=== PATIENT | male | born 1970 | race Caucasian/White ===

== ENCOUNTER 2016-04-28 04:39 | Emergency (ER) | payer SELFPAY ==
[2016-04-28 04:52] VITALS: BP 165/102; PULSE 104; RESP 22; TEMP 98.3
[2016-04-28] MEDS ORDERED: MAG HYDROX/AL HYDROX/SIMETH 30 ML, HYOSCYAMINE ELIXIR 10 ML, CIMETIDINE HCL 300 MG, LID... PO STA ×4 (05:17)
--- NOTE | 2016-04-28 05:27 | ED ---
ENT HPI - General Chief complaint: ENT Stated complaint: Difficulty Swallowing/Sore Throat Time Seen by Provider: 04/28/16 04:50 Source: patient, RN notes reviewed Mode of arrival: ambulatory Limitations: no limitations - History of Present Illness Initial comments: This is a 45-year-old male with no prior history of esophageal problems and states he was a steak yesterday at about 5 PM when he felt like he had a piece stuck in his throat. He had the feeling that he had some seconds throat he thought might have gotten out he did lay down and that would go away when he woke up this morning it was so their he came in for evaluation he states she's having trouble clearing his phlegm. He was apparently vomiting somewhat. He denies any chest pain or shortness of breath. No other complaints MD complaint: other - Related Data Previous Rx's Medication Instructions Recorded Pantoprazole Sodium [Protonix] 20 mg PO DAILY #10 tablet. 04/28/16 Allergies Allergy/AdvReac Type Severity Reaction Status Date / Time No Known Allergies Allergy Verified 04/28/16 04:52 Review of Systems ROS Statement: Those systems with pertinent positive or pertinent negative responses have been documented in the HPI. ROS Other: All systems not noted in ROS Statement are negative. Past Medical History Past Medical History: No Reported History History of Any Multi-Drug Resistant Organisms: None Reported Past Surgical History: Appendectomy Past Psychological History: No Psychological Hx Reported Smoking Status: Current every day smoker Past Alcohol Use History: Occasional Past Drug Use History: None Reported General Exam - General Exam Comments Initial Comments: This is a well-developed well-nourished awake alert oriented x 3 male Limitations: no limitations General appearance: alert, anxious, in distress Head exam: Present: atraumatic, normocephalic, normal inspection Eye exam: Present: normal appearance, PERRL, EOMI. Absent: scleral icterus, conjunctival injection, periorbital swelling ENT exam: Present: normal exam, mucous membranes moist Neck exam: Present: normal inspection. Absent: tenderness, meningismus, lymphadenopathy Respiratory exam: Present: normal lung sounds bilaterally. Absent: respiratory distress, wheezes, rales, rhonchi, stridor Cardiovascular Exam: Present: regular rate, normal rhythm, normal heart sounds. Absent: systolic murmur, diastolic murmur, rubs, gallop, clicks GI/Abdominal exam: Present: soft, normal bowel sounds. Absent: distended, tenderness, guarding, rebound, rigid Neurological exam: Present: alert, oriented X3, CN II-XII intact Psychiatric exam: Present: anxious Skin exam: Present: warm, dry, intact, normal color. Absent: rash Course Vital Signs 04/28/16 04:51 Temperature 98.3 F Pulse Rate 104 H Respiratory 22 Rate Blood Pressure 165/102 O2 Sat by Pulse 96 Oximetry - Reevaluation(s) Reevaluation #1: 04/28/16 05:27 Patient was able swallow hot water without too much difficulty he still feels like he's had some discomfort in his throat however. Medical Decision Making - Medical Decision Making The patient is feeling much improved and is able swallow without difficulty. He will be discharged Disposition Clinical Impression: Esophageal spasm, Sensation of foreign body in esophagus Disposition: HOME SELF-CARE Condition: Good Instructions: Esophageal Spasm (ED), Esophageal Foreign Body (ED) Prescriptions: Pantoprazole Sodium [Protonix] 20 mg PO DAILY #10 tablet.
== END 2016-04-28 06:17 | disposition home or self-care (01) ==
LOC: EC 04:39
DX: T18.128A Food in esophagus causing other injury, initial encounter (principal); F17.200 Nicotine dependence, unspecified, uncomplicated; Z90.49 Acquired absence of other specified parts of digestive tract
CPT/HCPCS: 99283

== ENCOUNTER 2019-10-23 02:02 | Emergency (ER) | payer OTHER ==
[2019-10-23 02:24] VITALS: TEMP 98.9
--- NOTE | 2019-10-23 02:32 | ED ---
Back Pain HPI - General Chief Complaint: Back Pain/Injury Stated Complaint: Leg pain Time Seen by Provider: 10/23/19 02:32 Source: patient, RN notes reviewed, old records reviewed Limitations: no limitations - History of Present Illness Initial Comments: This is a 49-year-old male DF with back pain and left lower extremity pain pain from his left knee to his left foot. History of similar. Symptoms for a few weeks now there is significantly worse today's intake at home [place] with no help. Denies trauma no fevers no shortness of breath chest pain or abdominal pain MD Complaint: back pain -: week(s) Similar Symptoms Previously: Yes Place: home Radiation: none Severity: moderate Severity scale (1-10): 6 Quality: stabbing Consistency: intermittent Improves With: none Worsens With: movement, walking Associated Symptoms: denies other symptoms - Related Data Previous Rx's Medication Instructions Recorded Pantoprazole Sodium [Protonix] 20 mg PO DAILY #10 tablet. 04/28/16 Allergies Allergy/AdvReac Type Severity Reaction Status Date / Time No Known Allergies Allergy Verified 10/23/19 02:23 Review of Systems ROS Statement: Those systems with pertinent positive or pertinent negative responses have been documented in the HPI. ROS Other: All systems not noted in ROS Statement are negative. Past Medical History Past Medical History: No Reported History History of Any Multi-Drug Resistant Organisms: None Reported Past Surgical History: Appendectomy Past Psychological History: No Psychological Hx Reported Smoking Status: Current every day smoker Past Alcohol Use History: None Reported Past Drug Use History: Opiates General Exam Limitations: no limitations General appearance: alert, in no apparent distress Head exam: Present: atraumatic, normocephalic, normal inspection Eye exam: Present: normal appearance, PERRL, EOMI. Absent: scleral icterus, conjunctival injection, periorbital swelling ENT exam: Present: normal exam, mucous membranes moist Neck exam: Present: normal inspection. Absent: tenderness, meningismus, lymphadenopathy Respiratory exam: Present: normal lung sounds bilaterally. Absent: respiratory distress, wheezes, rales, rhonchi, stridor Cardiovascular Exam: Present: regular rate, normal rhythm, normal heart sounds. Absent: systolic murmur, diastolic murmur, rubs, gallop, clicks GI/Abdominal exam: Present: soft, normal bowel sounds. Absent: distended, tenderness, guarding, rebound, rigid Extremities exam: Present: normal inspection, full ROM, normal capillary refill. Absent: tenderness, pedal edema, joint swelling, calf tenderness Back exam: Present: normal inspection Neurological exam: Present: alert, oriented X3, CN II-XII intact Psychiatric exam: Present: normal affect, normal mood Skin exam: Present: warm, dry, intact, normal color. Absent: rash Course Vital Signs 10/23/19 10/23/19 02:21 03:52 Temperature 98.9 F Pulse Rate 83 77 Respiratory 26 H 18 Rate Blood Pressure 142/90 127/87 O2 Sat by Pulse 98 98 Oximetry - Reevaluation(s) Reevaluation #1: medical record is reviewed Patient feeling better here in the ER Patient informed of results, questions are answered Patient feels improved and okay for discharge home Medical Decision Making - Medical Decision Making 49 male with acute on chronic left lower extremity pain. Pain is well- controlled here in the ER is ambulatory without significant distress. Patient can be discharged home Disposition Clinical Impression: Left leg pain Disposition: HOME SELF-CARE Condition: Good Instructions (If sedation given, give patient instructions): Leg Pain (ED) Is patient prescribed a controlled substance at d/c from ED?: No Referrals: None,Stated [Primary Care Provider] - 1-2 days
[2019-10-23] MEDS ORDERED: IBUPROFEN 800 MG TAB PO STA (02:48)
[2019-10-23] MEDS ORDERED: HYDROmorphone 1 MG/ML 1 ML SYRINGE IM STA (02:48)
[2019-10-23] MEDS ORDERED: diazePAM 5 MG TAB PO STA (02:48)
[2019-10-23] MEDS ORDERED: traMADol 50 MG STARTER PACK 3 TAB BTL PO STA (03:26)
[2019-10-23 03:53] VITALS: BP 127/87; PULSE 77; RESP 18
== END 2019-10-23 03:56 | disposition home or self-care (01) ==
LOC: EC 02:02
DX: M79.662 Pain in left lower leg (principal); F17.200 Nicotine dependence, unspecified, uncomplicated
CPT/HCPCS: 96372; 99284

== ENCOUNTER 2020-05-12 18:40 | Emergency (ER) | payer OTHER ==
[2020-05-12 18:51] VITALS: BP 140/85; PULSE 119; RESP 16; TEMP 98
--- NOTE | 2020-05-12 19:06 | ED ---
General Adult HPI - General Chief complaint: Overdose Stated complaint: Overdose Time Seen by Provider: 05/12/20 18:50 Source: EMS Mode of arrival: EMS Limitations: no limitations - History of Present Illness Initial comments: Patient is a 49-year-old male with past medical history of chronic opiate use and daily alcohol use who presents to the emergency department after he a possible overdose. Patient states that he was hanging out in the garage with his brother when he went unresponsive. Patient does not remember the event. States he felt well up until the incident. Reports that he drinks 3 "shooters" today and took 2 [place]. States that the patient normally takes this amount of alcohol and pain medications daily. It was then reported that the patient went unresponsive. EMS arrived to the scene and administered Narcan. Patient arrives to the emergency department alert and oriented. Denies any recent illnesses. No chest pain. No headaches. Denies any trauma from his fall. Requesting discharge without evaluation. - Related Data Previous Rx's Medication Instructions Recorded Pantoprazole Sodium [Protonix] 20 mg PO DAILY #10 tablet. 04/28/16 Allergies Allergy/AdvReac Type Severity Reaction Status Date / Time No Known Allergies Allergy Verified 10/23/19 02:23 Review of Systems ROS Statement: Those systems with pertinent positive or pertinent negative responses have been documented in the HPI. ROS Other: All systems not noted in ROS Statement are negative. Past Medical History Past Medical History: No Reported History History of Any Multi-Drug Resistant Organisms: None Reported Past Surgical History: Appendectomy Past Psychological History: No Psychological Hx Reported Smoking Status: Current every day smoker Past Alcohol Use History: None Reported Past Drug Use History: Opiates General Exam Limitations: no limitations General appearance: alert, in no apparent distress, other (dishevled) Head exam: Present: atraumatic, normocephalic, normal inspection Eye exam: Present: normal appearance, PERRL, EOMI. Absent: scleral icterus, conjunctival injection, periorbital swelling ENT exam: Present: normal exam, mucous membranes moist Neck exam: Present: normal inspection. Absent: tenderness, meningismus, lymphadenopathy Respiratory exam: Present: normal lung sounds bilaterally. Absent: respiratory distress, wheezes, rales, rhonchi, stridor Cardiovascular Exam: Present: regular rate, normal rhythm, normal heart sounds. Absent: systolic murmur, diastolic murmur, rubs, gallop, clicks GI/Abdominal exam: Present: soft, normal bowel sounds. Absent: distended, tenderness, guarding, rebound, rigid Extremities exam: Present: normal inspection, full ROM, normal capillary refill. Absent: tenderness, pedal edema, joint swelling, calf tenderness Back exam: Present: normal inspection Neurological exam: Present: alert, oriented X3, CN II-XII intact Psychiatric exam: Present: normal affect, normal mood Skin exam: Present: warm, dry, intact, normal color. Absent: rash Course Vital Signs 05/12/20 18:47 Temperature 98.0 F Pulse Rate 119 H Respiratory 16 Rate Blood Pressure 140/85 O2 Sat by Pulse 95 Oximetry Medical Decision Making - Medical Decision Making Upon arrival patient is placed into room 28. A thorough history and physical exam was performed. Breathalyzer is performed the patient's alcohol level is 0.07. Patient has no signs of head trauma. He is alert and oriented 3. Patient is requesting discharge at this time. Patient is made aware that he could become sedated once again after the narcan wears off. Patient was also made aware that there could be further reasons why he was unresponsive. Recommended laboratory studies and imaging. Patient is alert and oriented and capable of making his own decisions at this time. Patient is not above the legal limit for alcohol. He is requesting to be discharged at this time. Family is here and at bedside with the patient. Patient will be discharged AGAINST MEDICAL ADVICE. Instructed to follow up with his primary care doctor within 2-4 days. Return to the emergency department should he agree to any furt her treatment. Patient was discharged home AMA. Disposition Clinical Impression: Accidental drug overdose Disposition: Left Against Medical Advice Condition: Undetermined Additional Instructions: You are leaving against medical advice. Please follow up with your PCP for further evaluation or return to the ED. Is patient prescribed a controlled substance at d/c from ED?: No Referrals: None,Stated [Primary Care Provider] - 1-2 days Time of Disposition: 19:06
== END 2020-05-12 19:14 | disposition left against medical advice (07) ==
LOC: EC 18:40
DX: T50.7X1A Poisoning by analeptics and opioid receptor antagonists, accidental (unintentional), initial encounter (principal); F17.200 Nicotine dependence, unspecified, uncomplicated
CPT/HCPCS: 99284

== ENCOUNTER 2024-07-13 21:04 | Emergency (ER) | payer OTHER ==
[2024-07-13] MEDS: ADENOSINE 3 MG/ML 2 ML VIAL IVP STA ×2 (21:22→21:31)
[2024-07-13] MEDS: SODIUM CHLORIDE 0.9% 1,000 ML IV STA (21:26)
[2024-07-13] MEDS: HYDROmorphone 2 MG/ML 1 ML SYRINGE IVP STA (21:29)
[2024-07-13] MEDS: HYDROmorphone 1 MG/ML 1 ML SYRINGE IVP STA (21:32)
--- NOTE | 2024-07-13 21:32 | ED ---
General Adult HPI - General Chief complaint: Back Pain/Injury Stated complaint: Back pain, tachycardia Time Seen by Provider: 07/13/24 21:07 Source: EMS Mode of arrival: EMS - History of Present Illness Initial comments: Dictation was produced using [employer] dictation software. please excuse any grammatical, word or spelling errors. Chief Complaint: 54-year-old male presents with back pain History of Present Illness: Patient 54-year-old male presents to the emergency department via EMS for back pain. Patient states he was out in his yard picking [employer]. He was bending over when all of a sudden experienced a sharp pain in his back. Patient is brought to the emergency department by EMS states that patient was tachycardic. Patient Nuys any cardiac history. Denies any medical history. Patient states that the pain radiates down his left leg. Denies any saddle anesthesia. No bowel or bladder control issues. Patient denies any history of chronic back issues. States that his back has been feeling a little achy for the last couple days. The ROS documented in this emergency department record has been reviewed and confirmed by me. Those systems with pertinent positive or negative responses have been documented in the HPI. All other systems are other negative and/or noncontributory. - Related Data Previous Rx's Medication Instructions Recorded Pantoprazole Sodium [Protonix] 20 mg PO DAILY #10 tablet. 04/28/16 HYDROcodone/APAP 5-325MG [[place] 1 tab PO Q6HR PRN 3 Days #12 tab 07/14/24 5-325] Allergies Allergy/AdvReac Type Severity Reaction Status Date / Time No Known Allergies Allergy Verified 10/23/19 02:23 Review of Systems ROS Statement: Those systems with pertinent positive or pertinent negative responses have been documented in the HPI. ROS Other: All systems not noted in ROS Statement are negative. Past Medical History Past Medical History: No Reported History History of Any Multi-Drug Resistant Organisms: None Reported Past Surgical History: Appendectomy Past Psychological History: No Psychological Hx Reported Smoking Status: Current every day smoker Past Alcohol Use History: Daily Past Drug Use History: Opiates General Exam - General Exam Comments Initial Comments: PHYSICAL EXAM: General Impression: Alert and oriented x3, acute distress secondary to pain HEENT: Normocephalic atraumatic, extra-ocular movements intact, pupils equal and reactive to light bilaterally, mucous membranes moist. Cardiovascular: Tachycardic Chest: Able to complete full sentences, no retractions, no tachypnea Abdomen: abdomen soft, non-tender, non-distended, no organomegaly Musculoskeletal: Pulses present and equal in all extremities, no peripheral edema Motor: no focal deficits noted Neurological: CN II-XII grossly intact, no focal motor or sensory deficits noted Skin: Intact with no visualized rashes Psych: Anxious Course Vital Signs 07/13/24 07/13/24 07/13/24 21:09 22:25 23:00 Temperature Pulse Rate 170 H 103 H 109 H Respiratory 24 18 20 Rate Blood Pressure 155/90 149/112 155/104 O2 Sat by Pulse 97 93 L 95 Oximetry 07/13/24 07/14/24 23:55 00:39 Temperature 97.9 F Pulse Rate 107 H Respiratory 24 Rate Blood Pressure 178/121 O2 Sat by Pulse 96 Oximetry - Reevaluation(s) Reevaluation #1: 07/13/24 21:31 Patient seen and evaluated initially in bed #1. Patient was at a stable narrow complex tachycardia of around 170. No obvious P waves. Differential upon arrival was A-fib RVR versus SVT. Patient given 6 mg adenosine with no change. Patient given 12 mg of adenosine with conversion to sinus rhythm. EKG Findings - EKG Comments: EKG Findings:: My EKG interpretation: Ventricular rate 169, SVT, QRS 117, QTc 341. No QTC prolongation, no ST or T-wave changes noted. Medical Decision Making - Medical Decision Making Was pt. sent in by a medical professional or institution (, PA, CAN STRIPER, urgent care, hospital, or correction...) When possible be specific @ -No Did you speak to anyone other than the patient for history (EMS, parent, family, police, friend...)? What history was obtained from this source @ -No Did you review nursing and triage notes (agree or disagree)? Why? @ -I reviewed and agree with nursing and triage notes Were old charts reviewed (outside hosp., previous admission, EMS record, old EKG, old radiological studies, urgent care reports/EKG's, correction records)? Report findings @ -No old charts were reviewed Differential Diagnosis (chest pain, altered mental status, abdominal pain women, abdominal pain men, vaginal bleeding, musculoskeletal, weakness, fever, dyspnea, syncope, headache, dizziness, GI bleed, back pain, seizure, CVA, palpatations, mental health)? @ -Differential Back Pain: Strain, zoster, cauda equina syndrome, epidural abscess, vertebral osteomyelitis, discitis, fracture, subluxation, disc herniation, DJD, spinal stenosis, dissection, AAA, pancreatitis, peptic ulcer disease, pyelonephritis, kidney stone, this is not meant to be an all-inclusive list. EKG interpreted by me (3pts min.). @ -See above X-rays interpreted by me (1pt min.). @ -None done CT interpreted by me (1pt min.). @ -CT abdomen pelvis shows no acute processes U/S interpreted by me (1pt. min.). @ -None done What testing was considered but not performed or refused? (CT, X-rays, U/S, labs)? Why? @ -None What meds were considered but not given or refused? Why? @ -None Was smoking cessation discussed for >3mins.? @ -No Were there social determinants of health that impacted care today? How? (Rickie elessness, low income, unemployed, alcoholism, drug addiction, transportation, low edu. Level, literacy, decrease access to med. care, alf, rehab)? @ -No Was there de-escalation of care discussed even if they declined (Discuss DNR or withdrawal of care, Hospice)? DNR status @ -No What co-morbidities impacted this encounter? (DM, HTN, Smoking, COPD, CAD, Cancer, CVA, ARF, Chemo, Hep., AIDS, mental health diagnosis, sleep apnea, morbid obesity)? @ -History of back injury Was patient admitted / discharged? Hospital course, mention meds given and route, prescriptions, significant lab abnormalities, going to OR and other pertinent info. @ -54-year-old male with severe back strain. States that he was bending over picking up yo mushrooms when he started to experience pain. Patient has no red flag symptoms. No red flag findings on physical exam. Patient given multiple medications to try to control his symptoms with some alleviation. Imaging studies are negative. Labs are unremarkable. Disposition options are discussed with patient. Patient still slightly symptomatic at the bedside. Is recommended that he be admitted. Patient refused most be discharged. Patient heart rate is improved. Suspect that adrenaline surge from back pain incited SVT event. Cardiac labs negative. Patient discharged with referral to cardiology and spine surgery. Did you discuss the management of the patient with other professionals (professionals i.e. , PA, CAN STRIPER, lab, RT, psych nurse, social work assistant, game designer/creative director, teacher, safety and security officer, case specialist)? Give summary @ -No Was critical care preformed (if so, how long)? @ -No Undiagnosed new problem with uncertain prognosis? @ -No Drug Therapy requiring intensive monitoring for toxicity (Heparin, Nitro, Insulin, Cardizem)? @ -No Were any procedures done? @ -No Diagnosis/symptom? Acute, or Chronic, or Acute on Chronic? Uncomplicated ( without systemic symptoms) or Complicated (systemic symptoms)? @ -Back strain, SVT Side effects of treatment? @ -No Exacerbation, Progression, or Severe Exacerbation? @ -No Poses a threat to life or bodily function? How? (Chest pain, [place], [place], pneumonia, PE, COPD, DKA, ARF, appy, cholecystitis, CVA, Diverticulitis, Homicidal, Suicidal, threat to staff... and all critical care pts) @ -yes - Lab Data Result diagrams: 07/13/24 21:30 07/13/24 21:30 Lab Results 07/13/24 07/13/24 07/13/24 Range/Units 21:30 21:30 21:30 WBC 15.64 H (4.50-10.00) 10*3/uL RBC 5.22 (4.40-5.60) 10*6/uL Hgb 16.1 (13.0-17.0) g/dL Hct 45.6 (39.6-50.0) % MCV 87.4 (80.0-97.0) fL MCH 30.8 (27.0-32.0) pg MCHC 35.3 (32.0-37.0) g/dL Plt Count 208 (140-440) 10*3/uL MPV 12.4 H (9.5-12.2) fL Immature Gran % (Auto) 0.6 % Neutrophils % 74.7 % Lymphocytes % 14.6 % Monocytes % 8.9 % Eosinophils % 0.8 % Basophils % 0.4 % Immature Gran # 0.10 H (0.00-0.04) 10*3/uL Neutrophils # 11.66 H (1.80-7.70) 10*3/uL Lymphocytes # 2.29 (0.90-5.00) 10*3/uL Monocytes # 1.39 H (0.20-1.00) 10*3/uL Eosinophils # 0.13 (0.04-0.35) 10*3/uL Basophils # 0.07 (0.00-0.10) 10*3/uL PT 10.4 (10.0-12.5) sec INR 0.9 (<1.2) APTT 23.3 (22.0-30.0) sec Sodium 134 L (137-145) mmol/L Potassium 4.4 (3.5-5.1) mmol/L Chloride 101 (98-107) mmol/L Carbon Dioxide 19 L (22-30) mmol/L Anion Gap 14 mmol/L BUN 17 (9-20) mg/dL Creatinine 0.80 (0.66-1.25) mg/dL Est GFR (CKD-EPI)AfAm >90 (>60 ml/min/1.73 sqM) Est GFR (CKD-EPI)NonAf >90 (>60 ml/min/1.73 sqM) Glucose 122 H (74-99) mg/dL Plasma Lactic Acid Federico (0.7-2.0) mmol/L Calcium 10.2 (8.4-10.2) mg/dL Magnesium 2.0 (1.6-2.3) mg/dL Total Bilirubin 0.7 (0.2-1.3) mg/dL AST 64 H (17-59) U/L ALT 47 (4-49) U/L Alkaline Phosphatase 82 (38-126) U/L Troponin I (0.000-0.034) ng/mL Total Protein 7.3 (6.3-8.2) g/dL Albumin 4.5 (3.5-5.0) g/dL 07/13/24 07/13/24 Range/Units 21:30 23:30 WBC (4.50-10.00) 10*3/uL RBC (4.40-5.60) 10*6/uL Hgb (13.0-17.0) g/dL Hct (39.6-50.0) % MCV (80.0-97.0) fL MCH (27.0-32.0) pg MCHC (32.0-37.0) g/dL Plt Count (140-440) 10*3/uL MPV (9.5-12.2) fL Immature Gran % (Auto) % Neutrophils % % Lymphocytes % % Monocytes % % Eosinophils % % Basophils % % Immature Gran # (0.00-0.04) 10*3/uL Neutrophils # (1.80-7.70) 10*3/uL Lymphocytes # (0.90-5.00) 10*3/uL Monocytes # (0.20-1.00) 10*3/uL Eosinophils # (0.04-0.35) 10*3/uL Basophils # (0.00-0.10) 10*3/uL PT (10.0-12.5) sec INR (<1.2) APTT (22.0-30.0) sec Sodium (137-145) mmol/L Potassium (3.5-5.1) mmol/L Chloride (98-107) mmol/L Carbon Dioxide (22-30) mmol/L Anion Gap mmol/L BUN (9-20) mg/dL Creatinine (0.66-1.25) mg/dL Est GFR (CKD-EPI)AfAm (>60 ml/min/1.73 sqM) Est GFR (CKD-EPI)NonAf (>60 ml/min/1.73 sqM) Glucose (74-99) mg/dL Plasma Lactic Acid Federico 1.0 (0.7-2.0) mmol/L Calcium (8.4-10.2) mg/dL Magnesium (1.6-2.3) mg/dL Total Bilirubin (0.2-1.3) mg/dL AST (17-59) U/L ALT (4-49) U/L Alkaline Phosphatase (38-126) U/L Troponin I 0.015 (0.000-0.034) ng/mL Total Protein (6.3-8.2) g/dL Albumin (3.5-5.0) g/dL Disposition Clinical Impression: SVT (supraventricular tachycardia), Back strain Disposition: HOME SELF-CARE Instructions (If sedation given, give patient instructions): Supraventricular Tachycardia (ED), Acute Low Back Pain (ED) Prescriptions: HYDROcodone/APAP 5-325MG [[place] 5-325] 1 tab PO Q6HR PRN 3 Days #12 tab PRN Reason: Severe Pain Is patient prescribed a controlled substance at d/c from ED?: Yes If prescribed controlled substance>3 days was MAPS reviewed?: Prescribed <3 Days Referrals: West Khalil MD [Medical Doctor] - 1-2 days Mare Ag DO [Doctor of Osteopathic Medicine] - 1-2 days Time of Disposition: 00:55
[2024-07-13 21:38] LABS: Basophils # (A) 0.07 10*3/uL (0.00-0.10); Basophils % (A) 0.4 %; Eosinophils # (A) 0.13 10*3/uL (0.04-0.35); Eosinophils % (A) 0.8 %; HCT 45.6 % (39.6-50.0); HGB 16.1 g/dL (13.0-17.0); Lymphocytes # (A) 2.29 10*3/uL (0.90-5.00); Lymphocytes % (A) 14.6 %; MCH 30.8 pg (27.0-32.0); MCHC 35.3 g/dL (32.0-37.0); MCV 87.4 fL (80.0-97.0); Mean Platelet Volume 12.4 fL (9.5-12.2); Monocytes # (A) 1.39 10*3/uL (0.20-1.00); Monocytes % (A) 8.9 %; Neutrophils # (A) 11.66 10*3/uL (1.80-7.70); Neutrophils % (A) 74.7 %; Platelet Count 208 10*3/uL (140-440); RBC 5.22 10*6/uL (4.40-5.60); WBC 15.64 10*3/uL (4.50-10.00)
[2024-07-13 21:49] LABS: INR 0.9 (<1.2); Partial Thromboplastin Time 23.3 sec (22.0-30.0); Prothrombin Time 10.4 sec (10.0-12.5)
[2024-07-13 21:51] LABS: ALT 47 U/L (4-49); AST 64 U/L (17-59); African American GFR (CKD) >90 (>60 ml/min/1.73 sqM); Albumin 4.5 g/dL (3.5-5.0); Alkaline Phosphatase 82 U/L (38-126); Anion Gap 14 mmol/L; Blood Urea Nitrogen 17 mg/dL (9-20); Calcium 10.2 mg/dL (8.4-10.2); Carbon Dioxide 19 mmol/L (22-30); Chloride 101 mmol/L (98-107); Glucose 122 mg/dL (74-99); Non-African American GFR(CKD) >90 (>60 ml/min/1.73 sqM); Potassium 4.4 mmol/L (3.5-5.1); Sodium 134 mmol/L (137-145); Total Bilirubin 0.7 mg/dL (0.2-1.3); Total Protein 7.3 g/dL (6.3-8.2)
[2024-07-13] MEDS: KETOROLAC 15 MG/ML 1 ML VIAL IVP STA (22:06)
--- NOTE | 2024-07-13 23:49 | CT ---
EXAMINATION TYPE: CT abdomen pelvis w con CT DLP: 2019 mGycm, Automated exposure control for dose reduction was used. DATE OF EXAM: 07/13/2024 10:53 PM COMPARISON: None CLINICAL INDICATION:Male, 54 years old with history of back pain; abd pain tachycardic TECHNIQUE: Standard CT of the abdomen and pelvis following the administration of 100 cc of Isovue 3 00 IV contrast material. Coronal and sagittal reformats were performed. FINDINGS: LOWER CHEST: Unremarkable ABDOMEN LIVER: Diffusely hypoattenuating parenchyma. GALLBLADDER AND BILE DUCTS: Unremarkable. PANCREAS: Unremarkable. SPLEEN: Unremarkable. ADRENAL GLANDS: Unremarkable. KIDNEYS AND URETERS: No evidence of hydronephrosis or renal calculus. The kidneys enhance symmetrical ly. Contrast demonstrated within both collecting systems and proximal ureters on the delayed phase. PELVIS BLADDER: Unremarkable REPRODUCTIVE: Coarse calcifications of the prostate gland are identified. ABDOMEN & PELVIS STOMACH AND BOWEL: Stomach and duodenum are unremarkable. Scattered colonic diverticulosis without ev idence for acute diverticulitis. Postsurgical changes from appendectomy. No focal bowel wall thickeni ng or surrounding inflammatory changes. Fecalization of the terminal ileum. No evidence of bowel obst ruction. PERITONEUM: No evidence of pneumoperitoneum or free fluid. VASCULATURE: Minimal atherosclerotic calcifications are present throughout the abdominal aorta and it s branches. No evidence of aortic aneurysm. MUSCULOSKELETAL: No acute osseous abnormalities. Degenerative changes of the left SI joint with anter ior bridging. [facility] of the lower thoracic spine. Mild multilevel degenerative disc disease of the lumb ar spine. LYMPH NODES: No evidence for lymphadenopathy. SOFT TISSUE/ABDOMINAL WALL: Fat filled bilateral inguinal hernias. IMPRESSION: 1. No CT evidence for acute abdominal/pelvic process. 2. Fecalization of the terminal ileum suggesting delayed transit without evidence for obstruction or ileus. [facility], , 07/13/2024 11:47 PM
[2024-07-13 23:55] VITALS: TEMP 97.9
[2024-07-14 00:40] VITALS: BP 178/121; PULSE 107; RESP 24
[2024-07-14] MEDS: DEXAMETHASONE SOD PHOSPHATE 10 MG/ML 1 ML VIAL IV STA (00:49)
[2024-07-14] MEDS: ACET/COD 300 MG/30 MG STARTER PACK 6 TAB BTL PO STA (00:49)
== END 2024-07-14 00:54 | disposition home or self-care (01) ==
LOC: EC 21:04
DX: S39.012A Strain of muscle, fascia and tendon of lower back, initial encounter (principal); I47.10 Supraventricular tachycardia, unspecified; F17.200 Nicotine dependence, unspecified, uncomplicated; X58.XXXA Exposure to other specified factors, initial encounter
CPT/HCPCS: 36415; 93005; 80053; 83605; 83735; 84484; 85025; 85610; 85730; 74177; 99284; 96374; 96375 ×4; 96376; 96361 ×2; J3360; J0153; J1171; J1885; Q9967